=== PATIENT | male | born 1955 | race Caucasian/White ===

== ENCOUNTER 2023-05-13 19:36 | Emergency (ER) | payer SELFPAY ==
[~2023-05-13] VITALS: Ht 177.8 cm; Wt 90.7 kg
[2023-05-13 19:47] VITALS: TEMP 98
[2023-05-13] MEDS ORDERED: KETOROLAC TROMETHAMINE 15 MG/ML VIAL ONE (22:15)
[2023-05-13] MEDS ORDERED: IBUP-1955 PO (22:22)
[2023-05-13] MEDS ORDERED: KETOROLAC TROMETHAMINE INJ 30 MG/ML VIAL IV ONE (22:30)
[2023-05-13 22:46] VITALS: BP 159/88; O2SAT 98
== END 2023-05-13 22:47 | disposition home or self-care (01) ==
LOC: ER 19:41
DX: S63.592A Other specified sprain of left wrist, initial encounter (principal); F17.200 Nicotine dependence, unspecified, uncomplicated; Z79.899 Other long term (current) drug therapy; W18.39XA Other fall on same level, initial encounter; Y93.89 Activity, other specified; Y92.89 Other specified places as the place of occurrence of the external cause; Y99.8 Other external cause status
CPT/HCPCS: 29125; 73030; 73080; 73090; 73110; 96374; 99284; J1885